=== PATIENT | female | born 1980 | race Caucasian/White ===

== ENCOUNTER 2024-06-06 20:22 | Emergency (ER) | payer OTHER, MEDICAID ==
[~2024-06-06] VITALS: Ht 162.6 cm; Wt 73.0 kg
[2024-06-06 20:35] VITALS: TEMP 36.8; O2SAT 100
[2024-06-06] MEDS: IBUPROFEN 600MG TABLET PO ONE (21:57)
[2024-06-06] MEDS ORDERED: IBUP-2029 MT (22:40)
[2024-06-06] MEDS ORDERED: DICL100G58 TP (22:51)
[2024-06-06 22:53] VITALS: BP 142/79; PULSE 84; RESP 16; O2SAT 100
== END 2024-06-06 23:15 | disposition home or self-care (01) ==
LOC: ER 20:22
DX: S83.92XA Sprain of unspecified site of left knee, initial encounter (principal); W18.39XA Other fall on same level, initial encounter; Y93.89 Activity, other specified; Y92.89 Other specified places as the place of occurrence of the external cause; Y99.8 Other external cause status
CPT/HCPCS: 73562; 99283